=== PATIENT | male | born 1950 | race Two or more races ===

== ENCOUNTER 2018-12-25 22:46 | Inpatient (IN) | payer MEDICARE, OTHER ==
[~2018-12-25] VITALS: Ht 182.9 cm; Wt 71.7 kg
[2018-12-25 20:00] VITALS: BP 106/99
[~2018-12-25 22:46] MED LIST: ACET325T53 PO; ALLO100T56 PO; AMLO5TAB4 PO; ATOR20TA PO; DOCU100C36 PO; GLIP2.5T3 PO; INSU100I4 SQ; MAG30ORA PO; METF-442 PO; MULT-213 PO
--- NOTE | 2018-12-26 00:25 | NUR ---
RN NOTES PATIENT HAS BEEN ADMITTED TO [facility] UNDER GIP WITH TERMINAL DIAGNOSIS OF ACUTE MYELOGENIC LEUKEMIA. WILL CONTINUE TO MONITOR PT CLOSELY.
[2018-12-26 04:00] VITALS: BP 120/77
[2018-12-26 08:00] VITALS: BP 131/70
[2018-12-26] MEDS: HYDROMORPHONE 1 MG/1 ML DISP.SYRIN IV PRN ×2 (09:21→17:41)
[2018-12-26] MEDS: ACETAMINOPHEN 650 MG/SUPP.RECT RC PRN (11:06)
[2018-12-26 16:00] VITALS: BP 120/59
--- NOTE | 2018-12-26 19:20 | NUR ---
RN OPEN NOTES RECEIVED PATIENT RESTING IN BED. PATIENT NON-VERBAL BUT DOES HAVE EYE-OPENING AND MOTOR RESPONSE TO NAME. NO SIGNS OF DISTRESS OR DISCOMFORT. BREATHING EVEN AND UNLABORED. ON 2LPM O2 VIA NC. HAS SURI MIDLINE, PATENT AND INTACT, NO SIGNS OF REDNESS OR INFILTRATION. BED IN LOW LOCKED POSITION WITH SIDE RAILS X3. CALL LIGHT WITHIN REACH. WILL CONTINUE TO MONITOR.
[2018-12-26 20:00] VITALS: BP 131/56
--- NOTE | 2018-12-26 21:45 | NUR ---
RN NOTES HOSPICE NURSE ON UNIT TO SEE PATIENT.
[2018-12-27 04:00] VITALS: BP 104/57
--- NOTE | 2018-12-27 06:56 | NUR ---
RN CLOSING NOTES PATIENT RESTING IN BED. PATIENT NON-VERBAL BUT DOES EYE-OPENING AND SLIGHT EXTREMITY MOVEMENTS WHEN TOUCHED OR SPOKEN TO. NO SIGNS OF DISTRESS OR DISCOMFORT. BREATHING EVEN AND UNLABORED. ON 2LPM O2 VIA NC. HAS SURI MIDLINE, PATENT AND INTACT, NO SIGNS OF REDNESS OR INFILTRATION. ALL NEEDS MET. NO SIGNIFICANT CHANGES THROUGH THE NIGHT. PATIENT REPOSITIONED Q2H AND PRN. BED IN LOW LOCKED POSITION WITH SIDE RAILS X3. CALL LIGHT WITHIN REACH. WILL ENDORSE TO AM SHIFT FOR [place].
--- NOTE | 2018-12-27 07:45 | NUR ---
MS RN OPENING RECEIVED PATIENT RESTING IN BED. PATIENT NON-VERBAL BUT DOES HAVE EYE-OPENING AND MOTOR RESPONSE TO NAME. LABORED, SHALLOW BREATHING. RR 25. ON 2LPM O2 VIA NC FOR COMFORT. NO SIGNS OF PAIN. NPO. HAS SURI MIDLINE, PATENT AND INTACT, NO SIGNS OF REDNESS OR INFILTRATION. BED IN LOW LOCKED POSITION WITH SIDE RAILS X3. BED ALARM ON. CALL LIGHT WITHIN REACH. WILL CONTINUE TO MONITOR.
[2018-12-27 08:00] VITALS: BP 87/59
[2018-12-27] MEDS: MORPHINE SULFATE INJ 2 MG/ML DISP.SYRIN IV PRN (09:42)
[2018-12-27] MEDS: LORAZEPAM INJ 2 MG/ML VIAL IV PRN ×2 (13:51→21:29)
[2018-12-27 16:00] VITALS: BP 116/69
--- NOTE | 2018-12-27 18:38 | NUR ---
MS RN CLOSING NOTE PT. EYES CLOSED, RESTING IN BED. SPORADIC MOVEMENTS, SHALLOW BREATHS. TWO NIECES AT BEDSIDE. PT. KEPT COMFORTABLE THROUGHOUT SHIFT. 2LMP O2 VIA NC. SURI MIDLINE CLEAN, DRY AND INTACT. BED LOCKED, LOW, SIDE RAILS UPX3. CALL LIGHT WITHIN REACH.
--- NOTE | 2018-12-27 19:15 | NUR ---
CHANGE OF SHIFT REPORT Patient in bed, awake. Oxygen saturation 98% on 3L via NC, no facial grimace, appears restless. Patient is under Hospice care, NPO status. JOHN Midline, patent and intact. Maintained safety, family at bedside.
[2018-12-27 20:00] VITALS: BP 86/47
[2018-12-27 21:24] VITALS: BP 89/50
[2018-12-28 04:39] VITALS: BP 91/61
[2018-12-28 04:40] VITALS: BP 91/61
--- NOTE | 2018-12-28 06:23 | NUR ---
END OF SHIFT REPORT Patient in bed, on oxygen at 3L via NC for comfort. Episode of restlessness/anxiety with Pulse 110, respond well with IV Ativan, Pulse 95 and was able to calm down. Remains NPO, patient is on Hospice care. Continue providing comfort care, maintained safety.
--- NOTE | 2018-12-28 07:15 | NUR ---
RN OPENING NOTES RECEIVED BEDSIDE REPORT, PATIENT IN BED ASLEEP. BREATHING NON-LABORED. WAS GIVEN ATIVAN LAST NIGHT PER NOC SHIFT DUE TO HR >95. HAS A RIGHT UPPER ARM MIDLINE, SALINE LOCKED. COMFORT MEASURES ONLY. WILL CONTINUE TO MONITOR CLOSELY
[2018-12-28 08:00] VITALS: BP 94/51
[2018-12-28 09:00] VITALS: BP 94/51
--- NOTE | 2018-12-28 11:45 | NUR ---
RN NOTES PATIENT'S FAMILY ON BEDSIDE. PATIENT DID NOT HAVE ANY SIGNS OF ANY DISTRESS OR PAIN. WILL CONT TO MONITOR
--- NOTE | 2018-12-28 15:25 | NUR ---
RN NOTES PATIENT ON SLANTED POSITION IN BED, REPOSITIONED THE PATIENT FOR COMFORT. OXYGEN WAS REMOVED, PUT BACK IN PLACE. DID ORAL CARE WELL
[2018-12-28] MEDS: LORAZEPAM INJ 2 MG/ML VIAL IV PRN ×3 (16:44→21:34)
--- NOTE | 2018-12-28 16:55 | NUR ---
RN NOTES ATIVAN ADMINISTERED, HR 110
[2018-12-28] MEDS ORDERED: ONDANSETRON HCL/PF 4 MG/2 ML VIAL IV PRN (17:30)
--- NOTE | 2018-12-28 18:40 | NUR ---
RN CLOSING NOTES PATIENT IN BED, ASLEEP BUT EASILY AROUSABLE. NO SIGNS OF ANY PAIN OR ANY DISCOMFORT. ADMINISTERED ATIVAN FOR HR 110. HAD 1 WET DIAPER, NO BM TODAY. HAS A RIGHT UPPER ARM MIDLINE, INTACT, PATENT AND SALINE LOCKED. COMFORT CARE ONLY, WILL ENDORSE TO NOC SHIFT RN
--- NOTE | 2018-12-28 19:30 | NUR ---
RN OPENING NOTES MED SAGE PATIENT IN BED, ASLEEP BUT EASILY AROUSABLE. PATIENT IS RESTLESS. ADMINISTERED ATIVAN FOR HR 10 PRN COMFORT MEASURES PROTOCOL. , . HAS A RIGHT UPPER ARM MIDLINE, INTACT, PATENT AND SALINE LOCKED. COMFORT CARE ONLY. SAFETY MEASURES IN PLACE. BED LOCKED AND IN LOW POSITION
[2018-12-28 20:00] VITALS: BP 97/51
--- NOTE | 2018-12-28 20:00 | NUR ---
RN INITIAL HOSPICE NOTES RECEIVED PATIENT RESTING IN BED. HOSPICE. COMFORT CARE ONLY. PT IS NPO. HAS JOHN MIDLINE, PATENT AND INTACT, NO SIGNS OF REDNESS OR INFILTRATION. BED IN LOW LOCKED POSITION WITH SIDE RAILS X3. BED ALARM ON. CALL LIGHT WITHIN REACH. WILL CONTINUE TO MONITOR.
[2018-12-28] MEDS: MORPHINE SULFATE INJ 2 MG/ML DISP.SYRIN IV PRN ×3 (20:50→23:57)
--- NOTE | 2018-12-28 23:54 | NUR ---
RN NOTE: MORPHINE 2MG VIAL BROKEN UPON ASPIRATING DOSE TO BE GIVEN. MEDICATION WASTED AND WITNESSED BY CHARGE NURSE DONA. PRECEPTOR NAIDEN AWARE OF DISCRIPTENCY
[2018-12-29] VITALS: BP 93/50
[2018-12-29] MEDS: LORAZEPAM INJ 2 MG/ML VIAL IV PRN ×4 (03:45→18:14)
[2018-12-29 04:00] VITALS: BP 105/52
--- NOTE | 2018-12-29 06:14 | NUR ---
RN CLOSING HOSPICE NOTES NO SIGNIFICANT CHANGE IN PTS CONDITION. PATIENT IS RESTING IN BED. PT IS HOSPICE, COMFORT CARE ONLY. PT IS NPO. HAS JOHN MIDLINE, PATENT AND INTACT, NO SIGNS OF REDNESS OR INFILTRATION. BED IN LOW LOCKED POSITION WITH SIDE RAILS X3. BED ALARM ON. CALL LIGHT WITHIN REACH. WILL CONTINUE TO MONITOR.
--- NOTE | 2018-12-29 07:30 | NUR ---
RN OPENING NOTES RECEIVED BEDSIDE REPORT, PATIENT IN BED ASLEEP. EASILY AROUSABLE, OPENS EYES. ON 3L NC FOR COMFORT. PATIENT WAS GIVEN ATIVAN AND MORPHINE LAST NIGHT PER NOC SHIFT. WILL MONITOR VS. HAS A RIGHT UPPER ARM MIDLINE. WILL CONTINUE TO MONITOR CLOSELY
[2018-12-29] MEDS: ACETAMINOPHEN 650 MG/SUPP.RECT RC PRN ×2 (07:54→15:20)
[2018-12-29 08:00] VITALS: BP 105/50
--- NOTE | 2018-12-29 08:00 | NUR ---
RN NOTES PATIENT WAS GIVEN ATIVAN FOR HR 133 ORDERED AND TYLENOL FOR TEMP OF 100.6F
[2018-12-29] MEDS: MORPHINE SULFATE INJ 2 MG/ML DISP.SYRIN IV PRN (09:22)
--- NOTE | 2018-12-29 15:19 | NUR ---
RN NOTES PATIENT IS RUNNING A FEVER OF 100.4F, WILL GIVE COOLING MEASURES AND TYLENOL
[2018-12-29 16:00] VITALS: BP 103/48
--- NOTE | 2018-12-29 18:44 | NUR ---
RN CLOSING NOTES PATIENT IN BED, FAMILY ON BEDSIDE. HAS BEEN FEBRILE TODAY, BEEN GIVING TYLENOL FOR FEVER AND COLD MEASURES. HR HAS BEEN CONSTANTLY >95. ADMINISTERED ATIVAN 3X TODAY, AND MORPHINE. BED LOCKED AND IN LOWEST POSITION. REPOSITIONING PER PROTOCOL. WILL ENDORSE TO NOC SHIFT RN FOR [place]
[2018-12-29 20:00] VITALS: BP 93/50
--- NOTE | 2018-12-29 20:00 | NUR ---
RN INITIAL HOSPICE NOTES RECEIVED PATIENT RESTING IN BED. HOSPICE. COMFORT CARE ONLY. PT IS NPO. HAS JOHN MIDLINE, PATENT AND INTACT, NO SIGNS OF REDNESS OR INFILTRATION S/L.FAMILY AT BED SIDE. BED IN LOW LOCKED POSITION WITH SIDE RAILS X3. BED ALARM ON. CALL LIGHT WITHIN REACH. WILL CONTINUE TO MONITOR.
[2018-12-30 04:00] VITALS: BP 111/61
[2018-12-30] MEDS: LORAZEPAM INJ 2 MG/ML VIAL IV PRN (04:47)
--- NOTE | 2018-12-30 06:41 | NUR ---
RN CLOSING HOSPICE NOTES NO SIGNIFICANT CHANGE IN PTS CONDITION. PATIENT IS RESTING IN BED. PT IS HOSPICE, COMFORT CARE ONLY. PT IS NPO. HAS JOHN MIDLINE, PATENT AND INTACT S/L, NO SIGNS OF REDNESS OR INFILTRATION. BED IN LOW LOCKED POSITION WITH SIDE RAILS X3. BED ALARM ON. CALL LIGHT WITHIN REACH. WILL ENDORSE TO AM.
--- NOTE | 2018-12-30 07:38 | NUR ---
DIRECTOR ONCOLOGY OPENING NOTES RECEIVED BEDSIDE REPORT PATIENT ASLEEP WITH EYES HALF OPEN. NON RESPONSIVE TO VOICE BUT PULLS BACK FROM TOUCH. TACHYPNEIC BREATHING. ON 4 LTRS N/C NO ACUTE PAIN NOTED. SKIN WARM TO TOUCH VITALS CONT TO BE STABLE.INCONTINENT WITH DIAPER JOHN MIDLINE FLUSHING WELL. BED IN LOW POSITION SIDE RAILS X2 WILL FOLLOW HOSPICE PROTOCOL .
[2018-12-30 08:00] VITALS: BP 112/45
[2018-12-30] MEDS: MORPHINE SULFATE INJ 2 MG/ML DISP.SYRIN IV PRN ×4 (08:10→16:54)
--- NOTE | 2018-12-30 12:41 | NUR ---
FOREST SCIENTIST NOTES PATIENT CALM 2X DOSE OF MORPHINE GIVEN FOR TACHYPNEA. COOLONG MEASURES IN PLACE FOR ELEVATED TEMP.FAMILY AT BEDSIDE
[2018-12-30 16:00] VITALS: BP 87/53
--- NOTE | 2018-12-30 18:33 | NUR ---
AD OPERATIONS ASSOCIATE NOTES NO SIGNIFICANT CHANGES THROUGHOUT THE SHIFT. TURNED AND REPOSITIONED Q2 1X WET DIAPER.NO SIGNS OR SYMPTOMS OF RESPIRATORY DISTRESS SATURATING 100% ON 3 LTRS NASAL CANNULA NO SIGNS OR SYMPTOMS OF ACUTE PAIN MORPHINE GIVEN X4 FOR TACHYPNEA. PATIENT RESTING COMFORTABLE FOR THE MOST PART. SKIN INTACT WARM TO TOUCH COOLING MEASURES WHEN NEEDED. BED BATH AND ORAL CARE DONE. FAMILY AT BEDSIDE THROUGHOUT THE SHIFT. VITALS STABLE B/P STARTING TO DECREASE 87/53 HR 126 BED IN LOW POSITION ASPIRATION AND SAFETY PRECAUTIONS IN PLACE.SUCTION EQUIPMENT AT SIDE OF THE BED. WILL CONT HOSPICE CARE ORDERED.
--- NOTE | 2018-12-30 19:16 | NUR ---
REPORT ENDORSED TO NOC
--- NOTE | 2018-12-30 19:30 | NUR ---
RECEIVED PATIENT IN BED WITH EYES CLOSED; NONVERBAL; REACTIVE TO PAIN. MONITORED FOR PAIN. IV SITE PATENT, INTACT; FLUSHED. SAFETY PRECAUTIONS AND COMFORT MEASURES IN PLACE. WILL CONTINUE TO MONITOR. FAMILY AT BEDSIDE.
[2018-12-31] MEDS: MORPHINE SULFATE INJ 2 MG/ML DISP.SYRIN IV PRN (00:28)
--- NOTE | 2018-12-31 01:35 | NUR ---
PATIENT NOTED TO BE UNRESPONSIVE TO TOUCH, LIGHT PAIN, AND DEEP PAIN. PATIENT NOTED WITH NO RESPIRATIONS; NO PULSE APICALLY. PATIENT'S EYES ARE UNRESPONSIVE TO LIGHT. CONFIRMED WITH CHARGE NURSE EBONI.
--- NOTE | 2018-12-31 01:45 | NUR ---
NOTIFIED NATTY FROM [facility], [facility]. PER NATTY, SHE WILL NOTIFY DR. ORNELAS BUT NOT THE FAMILY.
--- NOTE | 2018-12-31 01:50 | NUR ---
NOTIFIED FAMILY FLAKO BASHIR AND ZOE BASHIR. BOTH STATED THAT THEY WILL COME TO THE HOSPITAL. NOTIFIED AGUILAR GOTTLIEB AT ADMITTING AND REGINA PURVIS LABEL REMOVER.
--- NOTE | 2018-12-31 01:55 | NUR ---
POST MORTEM CARE PERFORMED ON PATIENT. IV LINE DISCONTINUED. ARMBAND LEFT ON PATIENT. TOE TAG AND BODY BAG TAG APPLIED.
--- NOTE | 2018-12-31 05:15 | NUR ---
BODY RELEASED TO MORTUARY; WITNESSED BY CHARGE NURSE AND HOSPICE NURSE. FAMILY STILL IN FACILITY.
== END 2018-12-31 05:31 | disposition expired | DRG 690 ==
LOC: HOSPICE1 22:46
PROVIDERS: ADMIT Internal Medicine; ATTEND Internal Medicine
DX: C92.00 Acute myeloblastic leukemia, not having achieved remission (principal); A41.9 Sepsis, unspecified organism; G93.40 Encephalopathy, unspecified; D61.818 Other pancytopenia; E46 Unspecified protein-calorie malnutrition; N19 Unspecified kidney failure; E86.0 Dehydration; F03.90 Unspecified dementia, unspecified severity, without behavioral disturbance, psychotic disturbance, mood disturbance, and anxiety; Z51.5 Encounter for palliative care; R00.0 Tachycardia, unspecified; Z68.21 Body mass index [BMI] 21.0-21.9, adult; R62.7 Adult failure to thrive
CPT/HCPCS: G0378; J1170; J2060; J2270; J3480; J3490